=== PATIENT | female | born 1975 | race Caucasian/White ===

== ENCOUNTER 2023-06-09 15:17 | Emergency (ER) | payer OTHER ==
[~2023-06-09] VITALS: Ht 170.1 cm; Wt 104.3 kg
[2023-06-09 15:25] VITALS: BP 158/112
[2023-06-09] MEDS ORDERED: TOPROL XL50 M1 PO (15:26)
[2023-06-09] MEDS ORDERED: LISINOPRIL40 MG PO (15:26)
[2023-06-09 15:53] LABS: BASO # 0.1 10*3/uL (0.0-0.1); BASO % 0.6 % (0.0-1.0); EOS # 0.6 10*3/uL (0.0-0.4); EOS % 5.5 % (1.0-4.0); HEMATOCRIT 37.3 % (37.0-47.0); LYMPH # 3.7 10*3/uL (1.3-4.4); LYMPH % 32.7 % (27.0-41.0); MEAN CELL VOLUME 95.2 fl (81.0-99.0); MEAN CORPUSCULAR HGB 30.6 pg (27.0-31.0); MEAN CORPUSCULAR HGB CONC 32.2 g/dl (33.0-37.0); MEAN PLATELET VOLUME 9.5 fl (9.6-12.3); MONO # 0.7 10*3/uL (0.1-1.0); MONO % 5.7 % (3.0-9.0); NEUT # 6.3 10*3/uL (2.3-7.9); NEUT % 55.2 % (47.0-73.0); PLATELET COUNT AUTOMATED 413 10*3/uL (130-400); RED BLOOD COUNT 3.92 10*6/uL (4.10-5.10); RED CELL DISTRI WIDTH 12.1 % (0-14.5); WHITE BLOOD COUNT 11.4 10*3/uL (4.8-10.8)
[2023-06-09 16:08] LABS: ACT PARTIAL THROMBO TIME 25.9 SECONDS (20.0-32.1)
[2023-06-09 16:10] LABS: ALKALINE PHOSPHATASE 85 U/L (46-116); BUN 10 mg/dl (9-23); CHLORIDE 106 mmol/L (98-107); POTASSIUM 4.2 mmol/L (3.4-5.1); SGPT/ALT 15 U/L (5-49)
[2023-06-09 16:15] LABS: B-hCG (QUALITATIVE) NEGATIVE (NEGATIVE); BETA-HCG, QUANT < 3.0 mIU/mL (3-10)
[2023-06-09] MEDS ORDERED: ELIQUIS5 M1 PO (17:02)
== END 2023-06-09 17:05 | disposition home or self-care (01) ==
LOC: ED 15:17
PROVIDERS: Emergency Medicine
DX: I82.402 Acute embolism and thrombosis of unspecified deep veins of left lower extremity (principal); R10.2 Pelvic and perineal pain; Z88.2 Allergy status to sulfonamides; Z88.1 Allergy status to other antibiotic agents; Z88.8 Allergy status to other drugs, medicaments and biological substances

== ENCOUNTER → 2023-06-09 | Outpatient (CLI) | payer OTHER ==
[~2023-06-09] MED LIST: ELIQUIS5 M1 PO; LISINOPRIL40 MG PO; TOPROL XL50 M1 PO
== END | disposition home or self-care (01) ==
LOC: US 10:50
PROVIDERS: ATTEND Physician Assistant
DX: I82.432 Acute embolism and thrombosis of left popliteal vein (principal); I82.442 Acute embolism and thrombosis of left tibial vein; I82.812 Embolism and thrombosis of superficial veins of left lower extremity

== ENCOUNTER → 2023-08-17 | Outpatient (CLI) | payer OTHER | END | disposition home or self-care (01) | LOC: US 14:58 | PROVIDERS: ATTEND Physician Assistant | DX: I82.402 Acute embolism and thrombosis of unspecified deep veins of left lower extremity (principal) ==